=== PATIENT | male | born 1960 | race African-American/Black ===

== ENCOUNTER → 2018-02-11 | Outpatient (CLI) | payer OTHER ==
[~2018-02-11] MED LIST: AMITRIPTYLINE H10 M3 PO; AMITRIPTYLINE H25 M2 PO; AMLODIPINE BESY10 MG PO; AUGMENTIN 875-1 EACH PO; BETAMETHASONE D60 M2 TOP; CYCLOBENZAPRINE10 MG; DESYREL50 MG PO; FLEXERIL PO; FLOMAX0.4 MG PO; FLONASE 0.05%50 MCG NASAL; GLUCOPHAGE500 MG PO; HYDROCHLOROTHIA25 M1 PO; IBUPROFEN 600600 M1 PO; INDERAL LA60 M1; KEFLEX500 MG PO; LIPITOR 20 MG T20 M1 PO; LISINOPRIL20 MG PO; LISINOPRIL5 MG PO; LOSARTAN POTAS100 MG PO; MOBIC15 MG PO; NEURONTIN 400400 M1 PO; NEURONTIN300 MG PO; NORCO 5-325 TA1 EACH PO; NORVASC10 MG; OMEPRAZOLE 20 M20 MG; OMEPRAZOLE40 MG PO; ONDANSETRON HCL4 M2 PO; RANITIDINE HCL300 M1; TIZANIDINE HCL2 M1 PO; TRAMADOL 50 MG50 MG PO; ULTRAM 50MG TAB50 MG PO; ZOFRAN4 MG PO
--- NOTE | 2018-02-18 15:18 | PAINCON ---
[address] [address] PAIN MANAGEMENT CONSULTATION Name: NATAN OAKES Room: [facility] GilsonKerrie.#: [id number] Admission: 02/11/18 Attend Phys: Artem Oakes MD Discharge: Date of : 64 Report #: [id number] THIS REPORT FOR: //name// CC: Oscar Oakes DATE OF SERVICE: 02/11/2018 CHIEF COMPLAINT: Pain radiating down my left leg with numbness and weakness. HISTORY OF PRESENT ILLNESS: The patient is a 57-year-old gentleman who has been referred to the pain clinic for evaluation of left low back and leg pain. The patient states that he has been experiencing the pain and discomfort down into his left leg. He is experiencing numbness and tingling. Notes that the pain makes ambulation somewhat more difficult. He recounts trying to remove a tire. States that while trying to remove the tire, the lug nuts were quite tight. He felt a popping sensation as he loosened one of the lug nuts. He noted 2-3 days later that his pain continued to escalate. Notes that the pain is worse with activities of daily living. He is not sure of anything that makes it significantly better. This describes it as continuous, steady, constant, shooting, cramping, aching, throbbing, pounding, sharp, and stabbing pain. Rates it as a 9/10. Denies any pain similar to this in the past. He also notes some pain in his right knee. This has been problematic for about the last 6 months. He has used meloxicam and cyclobenzaprine to help with the pain. Feels that those medications have given him about 25% of improvement. Things which exacerbate the pain or activities, cold temperatures, prolonged walking, sitting, standing, walking upstairs, going from a sitting to a standing position, bending, and lifting. ALLERGIES: No known drug allergies. MEDICATIONS: Amlodipine 10 mg, Lipitor 20 mg, betamethasone 0.05% topical, Flexeril 10 mg spasms at bedtime, hydrochlorothiazide 25 mg, lisinopril 20 mg total of 40 mg daily, losartan 100 mg, Mobic 15 mg, metformin 500 mg b.i.d., omeprazole 20 mg 1-2 tablets daily, propranolol 60 mg, and Desyrel 50 mg. PAST MEDICAL HISTORY: Diabetes, hypertension, hepatitis C, gallbladder disease, stomach problems, joint disease/arthritis in the back, GERD, BPH, lumbar radiculopathy, chronic low back pain, hypercholesterolemia, and chronic insomnia. SOCIAL HISTORY: Works as a customer account specialist. He is working at this juncture. REVIEW OF SYSTEMS: Questionnaire to a point recent weight change, fatigue, [address] [place] [address] PAIN MANAGEMENT CONSULTATION Name: NATAN OAKES Room: [facility]#: [id number] Admission: 02/11/18 Attend Phys: Artem Oakes MD Discharge: Date of : 64 Report #: [id number] weakness, headaches, wears glasses, history of heart arrhythmia, shortness of breath, swelling of feet, nausea, abdominal pain, excessive thirst, hot and cold intolerance, joint pain, joint stiffness, weakness in the muscle, muscle pain and cramps, back pain, difficulty walking, rash, change in nails, recurring headaches, lightheadedness, numbness, and tingling sensation. LABORATORY DATA: MRI of the lumbar spine dated 04/23/2015. Impression: Degenerative changes and facet arthropathy with disk bulge in L4 through S1. 1. L3-L4 disk space narrowing and at least partial fusion of the posterior elements, spinous processes with mild narrowing of the spinal canal. No focal disk protrusion identified. Mild proximal left neural foraminal narrowing. 2. L4-L5 broad-based disk bulge and facet joint hypertrophy, left greater than right, resulting in moderately severe left foraminal narrowing. There is also right lateral recess stenosis. A small 6 mm focal small tissue signal structure abuts the anterior margin of the right facet joint, possibly buckling of the ligamentum flavum, focal synovial thickening, or small disk fragment. The right neural foramen is patent. Mild central canal narrowing. 3. L5-S1, mild disk bulge and small right paracentral protrusion with facet arthrosis. PAIN CLINIC ASSESSMENT: 1. History of osteoarthritis. The patient has some arthritic changes in his low back area. 2. Height 5 feet 7 inches, weight 269 pounds, BMI is 42. 3. Vital signs: Blood pressure is 137/89, heart rate 85, respiratory rate 16, room air saturation is 92%, temperature 99.0. 4. Pain intensity 8/10. 5. Fall risk. The patient has not fallen in the last 3 months. 6. Blood thinner. The patient is not on a blood thinning agent. 7. History of hypertension. The patient is being treated for hypertension. 8. Opioid therapy. The patient is not on an opioid regimen. 9. Risk assessment tool. 10. Functional assessment told. 11. Recreational drug use. The patient denies use of recreational drugs. 12. Tobacco: The patient denies use of tobacco. 13. Alcohol: The patient denies use of alcoholic beverages. PHYSICAL EXAMINATION: GENERAL: The patient is a well-developed black male, slightly obese. He is alert and oriented x 3. Speech is fluent. HEENT: Normocephalic, atraumatic. Extraocular eye muscles intact. Sclerae nonicteric. Hearing within normal limits. Mucous membranes are moist. NECK: Without adenopathy, JVD or bruits. Good range of motion. HEART: Regular rate. S1, S2. ABDOMEN: Protuberant [place] [address] PAIN MANAGEMENT CONSULTATION Name: NATAN OAKES Room: [facility]#: [id number] Admission: 02/11/18 Attend Phys: Artem Oakes MD Discharge: Date of : 64 Report #: [id number] EXTREMITIES: Upper extremity, muscle strength is judged to be 5/5 for the major muscle groups in the upper extremity. Deep tendon reflexes are trace at the biceps bilaterally. Brachial brachioradialis and triceps not noted. Lower extremity, muscle strength is judged to be 5/5 for the major muscle groups. The patient has pain and discomfort in the left low back area with pain that radiates into the L4-L5 distribution on his left leg. Notes some numbness, tingling, weakness in this area. Has some pain and discomfort in his right knee. Straight leg raise is positive on the left. Graham sign is negative. IMPRESSION: 1. Lumbar radiculopathy in the L4-L5 distribution on the left. 2. Diabetes mellitus. 3. Gastroesophageal reflux disease. 4. History of atrial fibrillation. 5. Benign prostatic hypertrophy. 6. Degenerative disk disease of the lumbar spine. 7. Lumbar radiculopathy. 8. Low back pain, chronic. 9. Hypercholesterolemia. 10. Hepatitis C. 11. Chronic insomnia. 12. Hypertension. RECOMMENDATIONS: We discussed treatment options with the patient. He has clinical findings consistent with lumbar radiculopathy involving his L5-S1 nerve root distribution with a positive straight leg raise. Sensory changes in the L4-L5 dermatomal distribution. We have discussed the possible, options. At this juncture, I think the patient should undergo a series of epidural steroid injections to help decrease the nerve root irritation. He will try tramadol for pain control. A script for 50 mg 1 tablet q.4-6 hours has been provided as well as Elavil to take at bedtime to help with some of the neurologic irritation that can result from nerve root irritation. He will follow up in the pain clinic at which time after being precertified by his insurance company, we will proceed with an epidural steroid injection in the L4-L5 dermatomal distribution to help with his pain. We would like to thank you for letting us participate in his care. We hope he continues to improve. <ELECTRONICALLY SIGNED> By: Artem Oakes MD 02/18/18 1518 1605 1948N. Mati Okaes MD /[facility]
== END ==
LOC: M.PC 03:58
DX: G89.29 Other chronic pain (principal); M54.5 Low back pain; M47.896 Other spondylosis, lumbar region; M54.16 Radiculopathy, lumbar region; E11.9 Type 2 diabetes mellitus without complications; I10 Essential (primary) hypertension; K21.9 Gastro-esophageal reflux disease without esophagitis; R53.1 Weakness; E78.00 Pure hypercholesterolemia, unspecified; I48.91 Unspecified atrial fibrillation; B19.20 Unspecified viral hepatitis C without hepatic coma; F51.04 Psychophysiologic insomnia

== ENCOUNTER → 2018-02-25 | Outpatient (CLI) | payer OTHER ==
--- NOTE | 2018-03-24 14:16 | PAINCON ---
[address] [address] PAIN MANAGEMENT CONSULTATION Name: NATAN OAKES Room: [facility] ZARA FrancoisNick#: [id number] Admission: 02/25/18 Attend Phys: Artem Oakes MD Discharge: Date of : 64 Report #: [id number] THIS REPORT FOR: //name// CC: Oscar Oakes DATE OF SERVICE: 02/25/2018 FOLLOWUP COMPLAINT: Here to undergo the epidural steroid injection. FOLLOWUP HISTORY: The patient is a 57-year-old gentleman who has been seen in the pain clinic because of pain and discomfort. He has been experiencing pain, which radiates down into his low back and down into his leg. He notes that the pain has been more problematic on the left. He has experienced some numbness and tingling in this area. He recounts trying to remove a tire. He recalls that the lug nuts were pretty tight. He felt a popping sensation when he loosened the lug nuts. Two to three days later, he continued to note pain and discomfort in his back, which has continued to escalate over time. He rates his pain as a 8-9/10. He also has some pain in his right knee. He was given Elavil at the last visit. He feels that the Elavil medication has been helpful. A trial of tramadol has not been very helpful in decreasing the pain. He would like to continue with the Elavil at bedtime, but does not feel that tramadol provided any significant improvement. ALLERGIES: No known drug allergies. MEDICATIONS: Amlodipine 10 mg, Lipitor 20 mg, betamethasone 0.05 topical, Flexeril 10 mg at bedtime for muscle spasms, hydrochlorothiazide 25 mg, lisinopril 20 mg total of 40 mg daily, losartan 100 mg, Mobic 15 mg, metformin 500 mg b.i.d., omeprazole 20 mg 1-2 tablets daily, propranolol 60 mg, and Desyrel 50 mg. PAIN CLINIC ASSESSMENT: 1. The patient is not being treated for osteoarthritis or rheumatoid arthritis. 2. Height 5 feet 7 inches, weight 209 pounds, BMI is 42. 3. Vital signs: Blood pressure 149/91, heart rate 82, respiratory rate 16, room air saturation 94%, temperature 98.5. 4. Pain intensity 8/10. 5. Fall risk: The patient has not fallen in the last 3 months. 6. The patient on a blood thinner: The patient is not on a blood thinning medication. 7. History of hypertension: The patient is not being treated for hypertension. 8. Opioid therapy greater than 6 weeks: The patient is not on an opioid regimen. 9. Risk assessment tool. 10. [place] [address] PAIN MANAGEMENT CONSULTATION Name: NATAN OAKES Room: [facility]#: [id number] Admission: 02/25/18 Attend Phys: Artem Oakes MD Discharge: Date of : 64 Report #: [id number] 11. Recreational drug use. The patient denies use of recreational drugs. 12. Tobacco: The patient denies use of tobacco. 13. Alcohol: The patient denies use of alcoholic beverages. PHYSICAL EXAMINATION: GENERAL: The patient is a well-developed, well-nourished black male, slightly obese. He is alert and oriented x 3. His speech is fluent. HEENT: Normocephalic, atraumatic. Extraocular eye muscles intact. Sclerae nonicteric. Hearing is within normal limits. Mucous membranes are moist. NECK: Without adenopathy, JVD or bruits. Good range of motion. HEART: Regular rate. S1, S2. ABDOMEN: Protuberant without organomegaly. EXTREMITIES: Upper extremity muscle strength is judged to be 5/5 for the major muscle groups in the upper extremities. Deep tendon reflexes trace in the biceps bilaterally. Muscle strength in the lower extremities is judged to be 5/5. The patient has some discomfort in the lower portion of his back with pain radiating down into his leg with some discomfort in the area of the L4-L5 distribution, left as well as the right leg. He notes some numbness and tingling in the affected area. The patient has noted some improvement in his right knee pain. Straight leg raise is positive on the left for radicular discomfort. IMPRESSION: 1. Lumbar radiculopathy, L4-L5 distribution on the left. 2. Diabetes mellitus. 3. Gastroesophageal reflux disease. 4. History of atrial fibrillation. 5. Benign prostatic hypertrophy. 6. Degenerative disk disease of the lumbar spine. 7. Low back pain, chronic. 8. Hypercholesterolemia. 9. Hepatitis C. 10. Chronic insomnia. 11. Hypertension. RECOMMENDATIONS: We discussed treatment options with the patient. We reviewed his findings again. He continues to have pain and discomfort in the lower portion of his back with pain that radiates down to the L4-L5, into the L4 distribution. He walks with a slight antalgic gait because of pain. He has returned to the pain clinic for an injection. His insurance company has granted him that ability. We will proceed with a lumbar epidural steroid injection. Risks and benefits of the procedure were again reviewed. They include but are not limited to infection, increased muscle soreness, headache, bleeding, worsening of pain, paralysis and the patient elects to proceed. PROCEDURE NOTE: The patient was taken into the procedure area. He was assisted [facility] [address] [place] [address] PAIN MANAGEMENT CONSULTATION Name: NATAN OAKES Room: [facility]#: [id number] Admission: 02/25/18 Attend Phys: Artem Oakes MD Discharge: Date of : 64 Report #: [id number] in getting on the procedure table. His back was sterilely prepped with a Betadine solution. Fluoroscopy using anterior, posterior as well as lateral viewing was instituted. His back was sterilely prepped with 0.25% bupivacaine. A 17-gauge Tuohy with loss of resistance was advanced into this area after the skin wheal was placed using 0.25% bupivacaine. Total of 80 mg Depo-Medrol, 40 mg triamcinolone and 2 mL of 0.25% bupivacaine was injected. The patient tolerated the procedure well. There were no complications. He will follow up in the near future. The patient has been given a script for amitriptyline 10 mg at bedtime to continue with. He feels that this medication is helpful and feels that it is helping his knee pain and discomfort. He will watch/monitor his blood sugars. We explained the possible problems with use of steroid medications in a patient with diabetes and he states he understands. We would like to thank you for letting us participate in his care. We hope he continues to improve. <ELECTRONICALLY SIGNED> By: Artem Oakes MD 03/24/18 1416 1416 [id number]. Mati Oakes MD /[facility]
== END | disposition home or self-care (01) ==
LOC: M.PC 03:54
DX: M51.16 Intervertebral disc disorders with radiculopathy, lumbar region (principal); G89.29 Other chronic pain; E11.9 Type 2 diabetes mellitus without complications; K21.9 Gastro-esophageal reflux disease without esophagitis; I48.91 Unspecified atrial fibrillation; N40.0 Benign prostatic hyperplasia without lower urinary tract symptoms; E78.00 Pure hypercholesterolemia, unspecified; B17.11 Acute hepatitis C with hepatic coma; Z79.899 Other long term (current) drug therapy

== ENCOUNTER → 2018-04-01 | Outpatient (CLI) | payer OTHER ==
--- NOTE | 2018-04-09 08:37 | PAINCON ---
[address] [address] PAIN MANAGEMENT CONSULTATION Name: NATAN OAKES Room: [facility] LUBNA Parrish.#: [id number] Admission: 04/01/18 Attend Phys: Artem Oakes MD Discharge: Date of : 64 Report #: [id number] THIS REPORT FOR: //name// CC: Oscar Oakes DATE OF SERVICE: 04/01/2018 FOLLOWUP COMPLAINT: Pain was improved for at least 5 days. It had resolved 100%. It is gradually started to return. At this juncture, it is a 9/10. Notes that his right knee appears to be doing better. His back is still problematic at 9-10. He is able to rest at night. He feels that the cyclobenzaprine is helpful, but caused him to be somewhat sleepy. He continues to work. He has had no problem with the gabapentin. He feels that the amitriptyline is helpful at night. He is not having any increased hangover in the morning. He is not sure how much benefit he received from tramadol. He feels that Meloxicam, which he has been taking for some time is helpful as well. Overall, feels things are 25% better. Has pain, which he rates as an 8-9. The patient and his went to [place] for vacation. He did an extended amount of walking and other activities on his feet. He feels that that may have been a reason why his pain has recurred. He still is having some numbness in his left leg. Finds that activities such as walking, sitting, standing, walking stairs and going from sitting to standing can be problematic. He had no complications with his medications. We will consider the possibility of an epidural steroid injections in the near future. We will increase and continue with gabapentin. ALLERGIES: No known drug allergies. CURRENT MEDICATIONS: Amlodipine 10 mg, Lipitor 20 mg, betamethasone 0.05 topical, Flexeril 10 mg at bedtime for muscle spasms, hydrochlorothiazide 25 mg, lisinopril 20 mg total of 40 mg daily, losartan 100 mg, Mobic 15 mg, metformin 500 mg b.i.d., omeprazole 20 mg 1-2 tablets daily, propranolol 60 mg, Desyrel 50 mg. PAIN CLINIC ASSESSMENT: 1. The patient is not being treated for osteoarthritis or rheumatoid arthritis. 2. Height 5 feet 7 inches, weight 263 pounds, BMI is 43. 3. Vital Signs: Blood pressure 147/107, heart rate 87, respiratory rate 16, room air saturation 95%, temperature 98.2. 4. Pain intensity 05/03. 5. Fall risk. The patient has not fallen in the last 3 months. 6. Blood thinner. The patient is not on a blood thinning medication. 7. History of hypertension. The patient is being treated for hypertension. 8. Opioid therapy. The patient is not on opioid medication and has tried tramadol, did not feel like that had much efficacy. 9. [place] [address] PAIN MANAGEMENT CONSULTATION Name: NATAN OAKES Room: [facility]#: [id number] Admission: 04/01/18 Attend Phys: Artem Oakes MD Discharge: Date of : 64 Report #: [id number] 10. Functional assessment tool. 11. Recreational drug use. The patient denies use of recreational drugs. 12. Tobacco: The patient denies use of tobacco. 13. Alcohol: The patient denies use of alcoholic beverages. PHYSICAL EXAMINATION: GENERAL: The patient is a well-developed, well-nourished black male, slightly obese. He is alert and oriented x 3. His speech is fluent. HEENT: Normocephalic, atraumatic. Extraocular eye muscles are intact. Sclerae nonicteric. Hearing is within normal limits. Mucous membranes are moist. NECK: Without adenopathy, JVD or bruits. Good range of motion. HEART: Regular rate. S1, S2. ABDOMEN: Protuberant without organomegaly, nontender. EXTREMITIES: Upper extremities strength is judged to be 5/5 for the major muscle groups in the upper extremity. Deep tendon reflexes are trace at the biceps bilaterally. Muscle strength in the lower extremities is judged to be 5/5. The patient has some discomfort in the lower portion of his back with pain radiating down into his leg, in the L4-L5 distribution. This involves his right leg. He has noted to return of some of the numbness and tingling in this area. The patient also has some right knee pain. Straight leg raise becoming positive for radicular discomfort. IMPRESSION: 1. Lumbar radiculopathy at L4-L5 distribution on the left. 2. Diabetes mellitus. 3. Gastroesophageal reflux. 4. History of atrial fibrillation. 5. Benign prostatic hypertrophy. 6. Degenerative disk disease of the lower lumbar spine. 7. Low back pain. 8. Chronic pain. 9. Hypercholesterolemia. 10. Hepatitis C. 11. Chronic insomnia. 12. Hypertension. RECOMMENDATIONS: We discussed treatment options with the patient. Risks and benefits of medications were discussed. The patient did not feel like the tramadol was very beneficial. We would not write that one. We discussed the use of gabapentin. He feels that there is some benefit from this medication. We will increase it. We have explained that about 1800 mg, sometimes is a good point to reach to make sure that the efficacy of this medication has been reached or approached. Tramadol has not been rewritten. Meloxicam, patient gets it from his primary. He will continue with that medication. Amitriptyline, the patient will be given 10 mg tablets and able to increase this up to 3 tablets per night. Hopefully, he will [place] [address] PAIN MANAGEMENT CONSULTATION Name: NATAN OAKES Room: [facility]#: [id number] Admission: 04/01/18 Attend Phys: Artem Oakes MD Discharge: Date of : 64 Report #: [id number] benefit from that. A script for this medication has been written. We would like to thank you for letting us participate in his care. We will consider possibility of another epidural steroid injection in the future. <ELECTRONICALLY SIGNED> By: Artem Oakes MD 04/09/18 0837 1231 205N. Mati Oakes MD /nt
== END ==
LOC: M.PC 03:27
DX: M51.16 Intervertebral disc disorders with radiculopathy, lumbar region (principal); I10 Essential (primary) hypertension; E78.00 Pure hypercholesterolemia, unspecified; E11.9 Type 2 diabetes mellitus without complications; K21.9 Gastro-esophageal reflux disease without esophagitis; N40.1 Benign prostatic hyperplasia with lower urinary tract symptoms; B18.2 Chronic viral hepatitis C; G89.29 Other chronic pain; G47.00 Insomnia, unspecified

== ENCOUNTER → 2018-04-15 | Outpatient (CLI) | payer OTHER ==
--- NOTE | 2018-04-21 16:41 | PAINCON ---
[address] [address] PAIN MANAGEMENT CONSULTATION Name: NATAN OAKES Room: [facility] LUBNA Parrish.#: [id number] Admission: 04/15/18 Attend Phys: Artem Oakes MD Discharge: Date of : 64 Report #: [id number] THIS REPORT FOR: //name// CC: Oscar Oakes DATE OF SERVICE: 04/15/2018 FOLLOWUP COMPLAINT: Pain improved after the last injection. My blood sugars did go up in the 300s. I saw my regular doctor and he gave me some medicine to take prior to this injection and to take for the next few days. FOLLOWUP HISTORY: The patient is a 57-year-old gentleman, who has been seen in the pain clinic because of lumbar radiculopathy. He has undergone an epidural steroid injection and epidural injection. He noted that the pain improved. He still has some pain and discomfort, which is radiating down into the low back into his leg. He has returned today for a second injection. The pain is primarily on the right side. It involves his knee as well. He noticed some severe low back pain at times, sometimes it makes difficult for him to concentrate. He works at home. He has tried the tramadol. He notes that it knocks the edge of the pain, but still pain continues to be problematic. He has had no complications from use of the amitriptyline. He is sleeping better as a result of that. No problems with gabapentin. He feels that the tizanidine is helpful. He has returned today with consideration of another epidural steroid injection. He has had no complications from the past procedure. He still has some discomfort with activities such as walking, sitting, standing, going from sitting to standing, lifting, and bending. He feels that heat, rest, and medications are helpful. CURRENT MEDICATIONS: Amlodipine 10 mg, Lipitor 20 mg, betamethasone 0.05 mg topical, Flexeril 10 mg at bedtime for muscle spasms, hydrochlorothiazide 25 mg, lisinopril 20 mg, total of 40 daily, losartan 100 mg, Mobic 15 mg, metformin 500 mg b.i.d., omeprazole 20 mg 1-2 tablets daily, propranolol 60 mg, and Desyrel 50 mg. ALLERGIES: No known drug allergies. PAIN CLINIC ASSESSMENT: 1. The patient is not being treated for osteoarthritis or rheumatoid arthritis. 2. He does have some symptoms in his knee that might be osteoarthritic. 3. Pain score is 8/10. 4. Fall history: The patient has not fallen in the last 3 months. 5. Blood thinner. The patient is not on a blood thinning medication. 6. Hypertension. The patient is being treated for hypertension. 7. Opioid therapy. The patient is not on an opioid medication on a [place] [address] PAIN MANAGEMENT CONSULTATION Name: NATAN OAKES Room: [facility]#: [id number] Admission: 04/15/18 Attend Phys: Artem Oakes MD Discharge: Date of : 64 Report #: [id number] 8. Risk assessment tool. 9. Functional assessment tool. 10. Recreational drug use. The patient denies use of recreational drugs. 10. Tobacco: The patient denies use of tobacco. 11. Alcohol: The patient denies use of alcoholic beverages. PHYSICAL EXAMINATION: GENERAL: The patient is a well-developed, well-nourished black male. He appears his stated age. He is slightly obese. Speech is fluent. Height is 5 feet 7 inches, weight is 267 pounds, and BMI is 41. VITAL SIGNS: Blood pressure is 130/88, heart rate is 108, respiratory rate is 18, room air saturation is 96%, and temperature is 98.7. HEENT: Normocephalic, atraumatic. Extraocular eye muscles intact. Sclerae nonicteric. Hearing is within normal limits. Mucous membranes are moist. NECK: Without adenopathy, JVD, or bruits. Good range of motion. HEART: Regular rate. S1, S2. ABDOMEN: Protuberant without organomegaly. EXTREMITIES: Upper extremity strength is judged to be 5/5 for the major muscle groups with symmetry. MUSCULOSKELETAL: Without significant scoliosis, kyphosis, or lordosis. The patient has pain and discomfort in the lower portion of his back with pain that radiates down into the L4-L5 distribution of his right leg. He note some numbness and tingling in this area. He has pain in the area of his right knee. Straight leg raise is positive. IMPRESSION: 1. Lumbar radicular pain in L4-L5 distribution, elevated blood sugars after last injection. 2. Diabetes. 3. Gastroesophageal reflux. 4. History of atrial fibrillation. 5. Benign prostatic hypertrophy. 6. Degenerative disk disease of the lower lumbar spine. 7. Low back pain. 8. Chronic pain. 9. Hypercholesterolemia. 10. Hepatitis C. 11. Chronic insomnia. 12. Hypertension. RECOMMENDATIONS: We have discussed treatment options with the patient. Risks and benefits of an epidural steroid injection were again reviewed. Possible complications were discussed. The patient did note elevation in his blood sugars is about 300 levels. He states that he has been seen by his primary physician, who has given him medications to take IM to help with the blood sugar control. He is to take this medication over the next 5 [place] [address] PAIN MANAGEMENT CONSULTATION Name: NATAN OAKES Room: [facility]#: [id number] Admission: 04/15/18 Attend Phys: Artem Oakes MD Discharge: Date of : 64 Report #: [id number] Should his blood sugars become elevated, he will call his primary. If his blood sugars become too low, he will cease using the insulin like medication as prescribed by his physician and contact his physician. PROCEDURE NOTE: The patient was taken to the procedure area. His back was sterilely prepped with a Betadine solution. A pillow was placed under his abdomen to bolster and improve positioning. Fluoroscopy used in the anterior, posterior as well as lateral viewing were implemented. He has a 17-gauge Tuohy with loss of resistance technique, it was used to gain access to the epidural space using a left paramedian approach. A total of 80 mg Depo-Medrol, 40 mg of triamcinolone, and 2 mL of 0.25% bupivacaine was injected. The patient tolerated the procedure well. There were no complications. Total of 10 seconds fluoroscopy time was used. The patient will follow up in the near future. We would like to thank you for letting us to participate in his care. We hope he continues to improve. <ELECTRONICALLY SIGNED> By: rAtem Oakes MD 04/21/18 1641 1314 0049N. MD RILEY Hernandez
== END | disposition home or self-care (01) ==
LOC: M.PC 03:21
DX: M51.16 Intervertebral disc disorders with radiculopathy, lumbar region (principal); E11.9 Type 2 diabetes mellitus without complications; K21.9 Gastro-esophageal reflux disease without esophagitis; I48.91 Unspecified atrial fibrillation; N40.0 Benign prostatic hyperplasia without lower urinary tract symptoms; G89.29 Other chronic pain; M54.5 Low back pain; E78.00 Pure hypercholesterolemia, unspecified; G47.09 Other insomnia; I10 Essential (primary) hypertension; B19.20 Unspecified viral hepatitis C without hepatic coma; Z68.41 Body mass index [BMI] 40.0-44.9, adult; Z79.899 Other long term (current) drug therapy

== ENCOUNTER → 2018-05-13 | Outpatient (CLI) | payer OTHER ==
--- NOTE | 2018-06-07 10:00 | PAINCON ---
[address] [address] PAIN MANAGEMENT CONSULTATION Name: NATAN OAKES Room: [facility] GilsonBebo#: [id number] Admission: 05/13/18 Attend Phys: Artem Oakes MD Discharge: Date of : 64 Report #: [id number] THIS REPORT FOR: //name// CC: Oscar Oakes DATE OF SERVICE: 05/13/2018 FOLLOWUP HISTORY: "The pain has improved after the last injection but I am still having some discomfort." FOLLOWUP COMPLAINT: The patient is a 57-year-old gentleman who has been seen in the Pain Clinic because of lumbar radiculopathy. He has undergone epidural steroid injections on 2 other occasions. He has gleaned about 70% improvement. At this juncture, he feels that things are going reasonably well. He is having some discomfort and would like to proceed with another injection. He feels that the tramadol, gabapentin and Elavil medications are helpful. He is not having any complications. He does still have some difficulty with activities, such as walking, sitting, standing, climbing stairs, lifting and bending. He feels that his medications as well as rest are helpful. He has returned today and feels that another injection would be beneficial. He agrees to proceed. ALLERGIES: No known drug allergies. CURRENT MEDICATIONS: Amlodipine 10 mg, Lipitor 20 mg, betamethasone 0.05% topical, Flexeril 10 mg at bedtime for muscle spasms, hydrochlorothiazide 25 mg, lisinopril 20 mg - a total of 40 mg lisinopril, losartan 100 mg, Mobic 15 mg, metformin 500 mg b.i.d., omeprazole 20 mg one to two tablets daily, propranolol 60 mg, Desyrel 50 mg. PAIN CLINIC ASSESSMENT/PQRS: 1. The patient is not being treated for osteoarthritis or rheumatoid arthritis. The patient does have some arthritic changes in his knee. 2. Height 5 feet 7 inches, weight 265 pounds, BMI is 41.6. 3. Vital signs: Blood pressure 131/101, heart rate is 100, saturation 94%, respiratory rate is 16, room air saturation 99%. 4. Pain score: 6/10. 5. Fall history: The patient has not fallen in the last 3 months. 6. Blood thinner: The patient is not on a blood thinning medication. 7. History of hypertension: The patient is being treated for hypertension. 8. Opioid therapy greater than 6 weeks: The patient is on a contract and receives his medications through the Pain Clinic. 9. Risk assessment tool: Low risk for opioid use. 10. Functional assessment tool. 11. Recreational drug use: The patient denies use of recreational drugs. 12. Tobacco: The [place] [address] PAIN MANAGEMENT CONSULTATION Name: NATAN OAKES Room: [facility]#: [id number] Admission: 05/13/18 Attend Phys: Artem Oakes MD Discharge: Date of : 64 Report #: [id number] 13. Alcohol: The patient denies use of alcoholic beverages. PHYSICAL EXAMINATION: GENERAL: The patient is a well-developed, well-nourished black male. He appears his stated age. He is slightly obese. He has speech, which is fluent. HEENT: Normocephalic, atraumatic. Extraocular eye muscles intact. Sclerae are nonicteric. Mucous membranes are moist. NECK: Without adenopathy or JVD. Good range of motion. HEART: Regular rate. S1, S2. ABDOMEN: Protuberant, without organomegaly. EXTREMITIES: Upper extremity muscle strength is judged to be 5/5 for the major muscle groups with symmetry. MUSCULOSKELETAL: Without significant scoliosis, kyphosis, or lordosis. The patient has pain and discomfort in the lower back with pain that is radiating down at the L4-L5 dermatomal distribution involving his right leg. The patient has some numbness and tingling in this area. He has perception of some weakness. Straight leg raise is positive. IMPRESSION: 1. Lumbar radicular pain in the L4-L5 distribution, elevated blood sugars after last injection. 2. Diabetes. 3. Gastroesophageal reflux. 4. History of atrial fibrillation. 5. Benign prostatic hypertrophy. 6. Degenerative disc disease of the lower lumbar spine. 7. Low back pain. 8. Chronic pain. 9. Hypercholesterolemia. 10. Hepatitis C. 11. Chronic insomnia. 12. Hypertension. RECOMMENDATIONS: We discussed treatment options with the patient. Risks and benefits of an epidural steroid injection were again reviewed. Possible complications of the procedure, which could include but are not limited to infection, increased muscle soreness, headache, bleeding, worsening of pain, no improvement in pain were discussed, and the patient elects to proceed. PROCEDURE NOTE: The patient was taken to the procedure area. He was assisted in getting on the examination table. His back was sterilely prepped with a Betadine solution. A 0.25% bupivacaine was infiltrated. A 17-gauge Tuohy with loss of resistance technique was used to gain access to the epidural space. There was no CSF, heme, or paresthesia. A right paracentral approach was undertaken. We were unable to negotiate that area. A midline approach was then used. A 0.25% bupivacaine was infiltrated. A 17-gauge [place] [address] PAIN MANAGEMENT CONSULTATION Name: NATAN OAKES Room: [facility]#: [id number] Admission: 05/13/18 Attend Phys: Artem Oakes MD Discharge: Date of : 64 Report #: [id number] resistance technique was then placed in the L4-L5 epidural area. A total of 80 mg Depo-Medrol, 40 mg triamcinolone and 2 mL of 0.25% bupivacaine was injected. The patient tolerated the procedure well. There were no complications. A total of 20 seconds fluoroscopy time was used. A script for tramadol 50 mg, amitriptyline 25 mg, Neurontin 300 mg t.i.d. was written. The patient will return to the Pain Clinic as needed. We would like to thank you for letting us participate in his care. We hope he continues to improve. <ELECTRONICALLY SIGNED> By: Artem Oakes MD 06/07/18 1000 [id number] 1651N. Mati Oakes MD /nt
== END | disposition home or self-care (01) ==
LOC: M.PC 01:46
DX: M51.16 Intervertebral disc disorders with radiculopathy, lumbar region (principal); G89.29 Other chronic pain; I10 Essential (primary) hypertension; E11.9 Type 2 diabetes mellitus without complications; K21.9 Gastro-esophageal reflux disease without esophagitis; N40.0 Benign prostatic hyperplasia without lower urinary tract symptoms; I48.91 Unspecified atrial fibrillation; F51.04 Psychophysiologic insomnia; B19.20 Unspecified viral hepatitis C without hepatic coma; Z79.899 Other long term (current) drug therapy; Z79.01 Long term (current) use of anticoagulants; Z98.890 Other specified postprocedural states

== ENCOUNTER → 2018-06-15 | Outpatient (CLI) | payer OTHER ==
--- NOTE | 2018-07-07 16:20 | PAINCON ---
[address] [address] PAIN MANAGEMENT CONSULTATION Name: NATAN OAKES Room: [facility].#: [id number] Admission: 06/15/18 Attend Phys: Artem Oakes MD Discharge: Date of : 64 Report #: [id number] THIS REPORT FOR: //name// CC: Oscar Oakes DATE OF SERVICE: 06/15/2018 CHIEF COMPLAINT: Pain in the back and down the leg has improved with the medications, injection." FOLLOWUP HISTORY: The patient is a 57-year-old gentleman who has been followed in the pain clinic. He recall he suffers from lumbar radiculopathy. He has undergone epidural steroid injections. He feels that these medications have been helpful. He feels greater than 70% improvement. This in conjunction with his current medical regimen of amitriptyline and tramadol have been helpful. He is able to engage in activities of daily living, but still has some problems with his back with certain activities, reduction and temperature outside, walking, sitting, standing, climbing stairs, going from a sitting and standing position and bending. He feels that the medications are helpful. He had no problems with his GI tract. The patient is considering a gastric sleeve to decrease his weight. He rates his pain as an 8/10 at this juncture. ALLERGIES: No known drug allergies. MEDICATIONS: Amlodipine 10 mg, Lipitor 20 mg, betamethasone 0.05% topical, Flexeril 10 mg at bedtime, hydrochlorothiazide 25 mg, lisinopril 20 mg, total of 40 mg daily, losartan 100 mg, Mobic 15 mg, metformin 500 mg b.i.d., omeprazole 20 mg 1-2 tablets daily, propranolol 60 mg, Desyrel 50 mg at bedtime. PAIN CLINIC ASSESSMENT/PQRS: 1. The patient does have some arthritic changes in his knee. He has not been treated for rheumatoid arthritis. 2. Height 5 feet 7 inches, weight 272 pounds, BMI is 42.7. 3. Vital signs: Blood pressure 129/86, heart rate 93, respiratory rate 16, room air saturation 93%. 4. Pain score 04/02. 5. Fall history: The patient has not fallen in the last 3 months. 6. Blood and the patient is not on a blood thinning medication. 7. Hypertension. He has been treated for hypertension. 8. Opioid therapy greater than 6 weeks. The patient is not on contract. He is on a contract with the pain clinic at his medications from 1 source. 9. Risk assessment tool, low for use of opioids. 10. Functional assessment tool. 11. Recreational drug use. The patient denies use of recreational drugs. 12. Tobacco: The [place] [address] PAIN MANAGEMENT CONSULTATION Name: NATAN OAKES Room: [facility]#: [id number] Admission: 06/15/18 Attend Phys: Artem Oakes MD Discharge: Date of : 64 Report #: [id number] PHYSICAL EXAMINATION: GENERAL: The patient is a well-developed, well-nourished black male, appears his stated age. He is alert and oriented x 3. Affect is appropriate. Speech is fluent. HEENT: Normocephalic, atraumatic. Extraocular eye muscles intact. Sclerae nonicteric. Mucous membranes are moist. NECK: Without adenopathy or JVD. Good range of motion. HEART: Regular rate. S1, S2. ABDOMEN: Protuberant without organomegaly. Bowel sounds present. Upper extremity muscle strength judged to be 5/5 for the major muscle groups with symmetry. MUSCULOSKELETAL: Without significant scoliosis, kyphosis or lordosis. The patient has pain and discomfort in the lower portion of his back with pain is radiating down in the L4-L5 dermatomal distribution improved after last epidural steroid injection. Still has some perception of pain and discomfort in this area. Slight weakness. Slight positive straight leg raise. IMPRESSION: 1. Lumbar radiculopathy in the L4-L5 distribution. History of sugars elevated after an epidural steroid injection. 2. Diabetes. 3. Gastroesophageal reflux. 4. History of atrial fibrillation. 5. Benign prostatic hypertrophy. 6. Degenerative disk disease of the lower spine. 7. Low back pain. 8. Chronic pain. 9. Hypercholesterolemia. 10. Hepatitis C. 11. Chronic insomnia. 12. Hypertension. RECOMMENDATIONS: We discussed treatment options with the patient. At this juncture, we will continue with his current medical regimen of gabapentin, amitriptyline, tramadol and Mobic. A script for these medications have been written. The patient will take the medications as prescribed. We have changed his Mobic; gabapentin from 300-400. He will continue with his amitriptyline. The patient is contemplating undergoing gastric bypass using sleeve. He will call us if he has any problems with his medications. He may need to stop the Mobic medication prior to the surgery. His general surgeon will instruct him in [address] [address] PAIN MANAGEMENT CONSULTATION Name: RISANATAN Mcclain Room: [facility]NA[facility] Morales#: [id number] Admission: 06/15/18 Attend Phys: Artem Oakes MD Discharge: Date of : 64 Report #: [id number] that area. We would like to thank you for letting us participate in his care. We hope he continues to improve. <ELECTRONICALLY SIGNED> By: Artem Oakes MD 07/07/18 1620 1311 1603N. Mati Oakes MD /nt
== END ==
LOC: M.PC 06-10 11:30
DX: M54.16 Radiculopathy, lumbar region (principal); E11.9 Type 2 diabetes mellitus without complications; K21.9 Gastro-esophageal reflux disease without esophagitis; N40.0 Benign prostatic hyperplasia without lower urinary tract symptoms; E78.00 Pure hypercholesterolemia, unspecified; I10 Essential (primary) hypertension; G89.29 Other chronic pain; F51.04 Psychophysiologic insomnia; B19.20 Unspecified viral hepatitis C without hepatic coma; M51.36 Other intervertebral disc degeneration, lumbar region; Z86.79 Personal history of other diseases of the circulatory system

== ENCOUNTER → 2018-07-13 | Outpatient (CLI) | payer OTHER ==
--- NOTE | ~2018-07-13 | PAINCON ---
[address] [address] PAIN MANAGEMENT CONSULTATION Name: NATAN OAKES Room: [facility] Francois.#: [id number] Admission: 07/13/18 Attend Phys: Artem Oakes MD Discharge: Date of : 64 Report #: [id number] THIS REPORT FOR: //name// CC: Oscar Oakes DATE OF SERVICE: 07/13/2018 PRIMARY CARE PHYSICIAN: Oscar Pelaez MD IDENTIFICATION: Here for medication renewal. "I have quite a bit of pain because I sit for a long time at work, I am a marketing data specialist." FOLLOWUP HISTORY: The patient is a 58-year-old gentleman who has been followed in the pain clinic because he suffers from lumbar radiculopathy. He has undergone epidural steroid injections. Notes that his pain improved about 70% in the past when he had the injection. Continues to have some pain and discomfort, which can be problematic. 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 Notes that this can be more problematic. He notes that his medications are helpful. He has considered getting one of the desk where he can stand. He feels that this might be helpful and he will look into it. He would like to have his medications renewed. He does not have any problems with the medications. He is keeping the medications in a guarded area. Feels that the tramadol was helpful. He has had no problem with meloxicam with his stomach. He feels that the muscle relaxant, tizanidine is helpful. ALLERGIES: No known drug allergies. CURRENT MEDICATIONS: Amlodipine 10 mg, Lipitor 20 mg, betamethasone 0.05% topical, Flexeril 10 mg at bedtime, hydrochlorothiazide 25 mg, lisinopril 20 mg, a total of 40 mg daily, losartan 100 mg, Mobic 15 mg, metformin 500 mg b.i.d., omeprazole 20 mg 1-2 tablets daily, propranolol 60 mg, and Desyrel 50 mg at bedtime. PAIN CLINIC ASSESSMENT/PQRS: 1. The patient does have some arthritic changes in his knees. He is not being treated for rheumatoid arthritis. 2. Height 5 feet 7 inches, weight 272 pounds, BMI is 42.7. 3. Vital signs: Blood pressure 136/87, heart rate 96, respiratory rate 16, room air saturation 95%, temperature 98.4. 4. Pain intensity 9/10. 5. Fall risk. The patient has not fallen in the last 3 months. 6. Blood thinner. The patient is not on a blood thinning medication. 7. Hypertension. The patient is being treated for hypertension. 8. Opioids greater than 6 weeks. The [place] [address] PAIN MANAGEMENT CONSULTATION Name: NATAN OAKES Room: [facility]#: [id number] Admission: 07/13/18 Attend Phys: Artem Oakes MD Discharge: Date of : 64 Report #: [id number] 9. Risk assessment tool, low for opioid use. 10. Functional assessment tool. 11. Recreational drug use. The patient denies use of recreational drugs. 12. Tobacco: The patient denies use of tobacco. PHYSICAL EXAMINATION: GENERAL: The patient is a well-developed, well-nourished black male, appears his stated age. He is alert and oriented x 3. His affect is appropriate. Speech is fluent. HEENT: Normocephalic, atraumatic. Extraocular eye muscles intact. Sclerae nonicteric. Mucous membranes are moist. NECK: Without adenopathy or JVD. Good range of motion. HEART: Rate regular, S1, S2. ABDOMEN: Protuberant without organomegaly. Bowel sounds present. EXTREMITIES: Upper extremity muscle strength is judged to be 5/5 for the major muscle groups. MUSCULOSKELETAL: Without significant scoliosis, kyphosis or lordosis. The patient has pain and discomfort in the lower portion of his back radiating down to the L4-L5 dermatomal distribution. Slight positive of straight leg raise on the left and right. IMPRESSION: 1. Lumbar radiculopathy, L4-L5 dermatomal distribution. 2. History of elevated blood sugars after epidural steroid injection. 3. Diabetes. 4. Gastroesophageal reflux. 5. History of atrial fibrillation. 6. Benign prostatic hypertrophy. 7. Degenerative disk disease of the lower spine. 8. Low back pain. 9. Chronic pain. 10. Hypercholesterolemia. 11. Hepatitis C. 12. Chronic insomnia. 13. Hypertension. RECOMMENDATIONS: We discussed treatment options with the patient. I feel that it would be helpful for him to try one of the standing desktops. I think this will be helpful in decreasing some of the pain that he has. States that for a prolonged sitting he notes a worsening of his pain. He states that he would have to buy this out of his own money. He will consider this. We did talk about the possibility of seeing this at a store like [employer]. He would like to have his medications renewed. A script for his medications has been rewritten. We will continue tramadol 50 mg 1 p.o. q.i.d. 120 tablets in the spurs. Amitriptyline 2 tablets at bedtime for a total of 50 mg, Meloxicam 15 mg daily, tizanidine 2 [place] [address] PAIN MANAGEMENT CONSULTATION Name: NATAN OAKES Room: [facility].#: [id number] Admission: 07/13/18 Attend Phys: Artem Oakes MD Discharge: Date of : 64 Report #: [id number] We would like to thank you for letting us participate in his care. We hope he continues to improve. By: 1637 0400N. Mati Oakes MD /EMILIANO
== END ==
LOC: M.PC 04:53
DX: M54.16 Radiculopathy, lumbar region (principal); E11.9 Type 2 diabetes mellitus without complications; K21.9 Gastro-esophageal reflux disease without esophagitis; I48.91 Unspecified atrial fibrillation; E78.00 Pure hypercholesterolemia, unspecified; I10 Essential (primary) hypertension; G89.29 Other chronic pain; N40.0 Benign prostatic hyperplasia without lower urinary tract symptoms; B19.20 Unspecified viral hepatitis C without hepatic coma; M51.36 Other intervertebral disc degeneration, lumbar region; Z79.899 Other long term (current) drug therapy

== ENCOUNTER → 2018-08-10 | Outpatient (CLI) | payer OTHER ==
--- NOTE | ~2018-08-10 | PAINCON ---
[address] [address] PAIN MANAGEMENT CONSULTATION Name: NATAN OAKES Room: [facility]#: [id number] Admission: 08/10/18 Attend Phys: Artem Oakes MD Discharge: Date of : 64 Report #: [id number] THIS REPORT FOR: //name// CC: Oscar Oakes DATE OF SERVICE: 08/10/2018 PRIMARY CARE PHYSICIAN: Oscar Pelaez M.D. CHIEF COMPLAINT: Here for medication renewal. FOLLOWUP HISTORY: The patient is a 58-year-old black gentleman who has been followed in the pain clinic because of lumbar radiculopathy. He has undergone an epidural steroid injection. He found that, that has been beneficial. He feels that overall things are going reasonably well with his current medical regimen. He has had no complications from it. Continues to work from his home. Feels that the ergonomic changes to his work space had been beneficial. He would like to have his medications renewed today. ALLERGIES: No known drug allergies. CURRENT MEDICATIONS: Amlodipine 10 mg, Lipitor 20 mg, betamethasone 0.05% topical, Flexeril 10 mg at bedtime, hydrochlorothiazide 25 mg, lisinopril 20 mg, 40 mg total, losartan 100 mg, Mobic 15 mg, metformin 500 mg b.i.d., omeprazole 20 mg 1-2 tablets, propranolol 60 mg, Desyrel 50 mg at bedtime. PAIN CLINIC ASSESSMENT AND PQRS: 1. The patient does have some arthritic changes in his knees. He has not been treated for rheumatoid arthritis. 2. Height 5 feet 7 inches, weight 273 pounds, BMI is 42. 3. Vital Signs: Blood pressure is 140/85, heart rate 97, respiratory rate 16, room air saturation 96%, temperature 98.3. 4. Pain intensity /10. 5. Fall risk. The patient has not fallen in the last 3 months. 6. Blood thinner. The patient is not on a blood thinning medication. 7. Hypertension. The patient is being treated for hypertension. 8. Opioids greater than 6 weeks. The patient is receiving tramadol. 9. Risk assessment tool for opioid use low. 10. Functional assessment tool. 11. Recreational drug use. The patient denies use of recreational drugs. 12. Tobacco: The patient denies use of tobacco. PHYSICAL EXAMINATION: GENERAL: The patient is a well-developed, well-nourished, [place] [address] PAIN MANAGEMENT CONSULTATION Name: NATAN OAKES Room: [facility]#: [id number] Admission: 08/10/18 Attend Phys: Artem Oakes MD Discharge: Date of : 64 Report #: [id number] his stated age. He is alert and oriented x 3. His affect is appropriate. Speech is fluent. HEENT: Normocephalic, atraumatic. Extraocular eye muscles intact. Sclerae nonicteric. Mucous membranes are moist. NECK: Without adenopathy or JVD. Good range of motion. HEART: Regular rate. S1, S2. ABDOMEN: Protuberant without organomegaly. Bowel sounds present. EXTREMITIES: Upper extremity muscle strength is judged to be 5/5 for the major muscle groups. MUSCULOSKELETAL: Without significant scoliosis, kyphosis or lordosis. The patient has pain and discomfort in the lower portion of his back, which radiates down in the L4-L5 dermatomal distribution. Slightly positive straight leg raise on the left and right. IMPRESSION: 1. History of lumbar radiculopathy, L4-L5 dermatomal distribution. 2. History of elevated blood sugars after an epidural steroid injection. 3. Diabetes. 4. Gastroesophageal reflux. 5. History of atrial fibrillation. 6. Benign prostatic hypertrophy. 7. Degenerative disk disease of the lumbar spine. 8. Low back pain. 9. Chronic pain. 10. Hypercholesterolemia. 11. Hepatitis C. 12. Chronic insomnia. 13. Hypertension. RECOMMENDATIONS: We discussed treatment options with the patient. We will continue with his current medications. He feels overall that things are beneficial. We will renew his medications. A script for amitriptyline 25 mg 2 tablets at bedtime, gabapentin 400 mg 1 p.o. t.i.d., tramadol 50 mg q.i.d., Meloxicam 15 mg daily, tizanidine 2 mg b.i.d. have been written. We would like to thank you for letting us participate in his care. We hope he continues to improve. By: [id number]. Mati Oakes MD /EMILIANO
== END ==
LOC: M.PC 04:43
DX: M51.16 Intervertebral disc disorders with radiculopathy, lumbar region (principal); E11.9 Type 2 diabetes mellitus without complications; K21.9 Gastro-esophageal reflux disease without esophagitis; I48.91 Unspecified atrial fibrillation; E78.00 Pure hypercholesterolemia, unspecified; I10 Essential (primary) hypertension; N40.0 Benign prostatic hyperplasia without lower urinary tract symptoms; G89.29 Other chronic pain; G47.00 Insomnia, unspecified; B19.20 Unspecified viral hepatitis C without hepatic coma; Z79.899 Other long term (current) drug therapy

== ENCOUNTER → 2018-09-09 | Outpatient (CLI) | payer OTHER | END | disposition home or self-care (01) | LOC: M.PC 08-31 11:20 | DX: M54.16 Radiculopathy, lumbar region (principal); G89.29 Other chronic pain; I10 Essential (primary) hypertension; E11.9 Type 2 diabetes mellitus without complications; E78.00 Pure hypercholesterolemia, unspecified; B19.20 Unspecified viral hepatitis C without hepatic coma; Z79.899 Other long term (current) drug therapy; Z98.890 Other specified postprocedural states ==

== ENCOUNTER → 2018-10-07 | Outpatient (CLI) | payer OTHER ==
--- NOTE | 2018-10-12 09:15 | PAINCON ---
[address] [address] PAIN MANAGEMENT CONSULTATION Name: NATAN OAKES Room: [facility]#: [id number] Admission: 10/07/18 Attend Phys: Artem Oakes MD Discharge: Date of : 64 Report #: [id number] THIS REPORT FOR: //name// CC: Oscar Oakes DATE OF SERVICE: 10/11/2018 CHIEF COMPLAINT: Here for medication renewal. FOLLOWUP HISTORY: The patient is a 58-year-old gentleman who has been followed in the pain clinic because of chronic pain. Has low back pain and discomfort. He has undergone epidural steroid injections because of lumbar radicular pain. He was found overall that things are going reasonably well. Pain involves his right side, in the L5-S1 dermatomal distribution. He works from home. Did change his work environment to one that has been most ergonomic As a result of that change, he has noted some improvement in his pain. He has returned today for renewal of his pain medications. Overall, he feels that things are about 70% improved. Feels that things are "not too bad. Rates it as a 5/10 today. ALLERGIES: No known drug allergies. CURRENT MEDICATIONS: Amlodipine 10 mg, Lipitor 20 mg, betamethasone 0.05% topical, Flexeril 10 mg at bedtime, hydrochlorothiazide 25 mg, lisinopril 20 mg, total of 40 daily; losartan 100 mg, Mobic 15 mg, metformin 500 mg b.i.d., omeprazole 20 mg 1-2 tablets, propranolol 60 mg, Desyrel 50 mg at bedtime. PAIN CLINIC ASSESSMENT/PQRS: 1. The patient does have some arthritic changes in his knees. He is not being treated for rheumatoid arthritis. 2. Height 5 feet 7 inches, weight 276 pounds, BMI is 44. 3. Vital Signs: Blood pressure 146/90, heart rate 98, respiratory rate 16, room air saturation 95%. 4. Temperature 98.2. 5. Pain intensity 12/31. 6. The patient has not fallen in the last 3 months. 7. Blood thinner. The patient is not on a blood thinning medication. 8. Hypertension. The patient is being treated for hypertension. 9. Opioids greater than 6 weeks. The patient is receiving tramadol through the pain clinic. 10. Risk assessment tool, low for opioid use. 11. Functional assessment tool. 12. Recreational drug use. The patient denies use of recreational drugs. 13. Tobacco: The patient denies use of tobacco. PHYSICAL EXAMINATION: [address] [place] [address] PAIN MANAGEMENT CONSULTATION Name: NATAN OAKES Room: [facility]#: [id number] Admission: 10/07/18 Attend Phys: Artem Oakes MD Discharge: Date of : 64 Report #: [id number] GENERAL: The patient is a well-developed, well-nourished black male, slightly obese. He is alert and oriented x 3. Affect is appropriate. Speech is fluent. HEENT: Normocephalic, atraumatic. Extraocular eye muscles intact. Sclerae nonicteric. Mucous membranes are moist. NECK: Without adenopathy. The patient wears glasses. HEART: Regular rate. S1, S2. ABDOMEN: Protuberant without organomegaly. Bowel sounds present. EXTREMITIES: Upper extremity muscle strength judged to be 5/5 for the major muscle groups. MUSCULOSKELETAL: Without significant scoliosis, kyphosis or lordosis. The patient does have some pain and discomfort in lower portion of his back with pain that involves the L4-L5 dermatomal distribution as well as the L4-L5 dermatomal distribution, left and right are involved. IMPRESSION: 1. History of lumbar radiculopathy. 2. History of elevated blood sugars after epidural steroid injections. 3. Diabetes. 4. Gastroesophageal reflux. 5. History of atrial fibrillation. 6. Benign prostatic hypertrophy. 7. Degenerative disk disease of lumbar spine. 8. Low back pain. 9. Chronic pain. 10. Hypercholesterolemia. 11. Hepatitis C. 12. Chronic insomnia. 13. Hypertension. RECOMMENDATIONS: We discussed treatment options with the patient. At this juncture, we will continue with his current medication regimen. He feels that things are going reasonably well. He has had about 70% improvement in his pain with his current medical treatment. A script for his medications of tramadol, Meloxicam, tizanidine and amitriptyline have all been renewed. The patient will call us if he has any concerns. We would like to thank you for letting us participate in his care. We hope he continues to improve. <ELECTRONICALLY SIGNED> By: Artem Oakes MD 10/12/18 [id number]. Mati Oakes MD /nt
== END ==
LOC: M.PC 05:28
DX: M51.36 Other intervertebral disc degeneration, lumbar region (principal); G89.29 Other chronic pain; E11.9 Type 2 diabetes mellitus without complications; K21.9 Gastro-esophageal reflux disease without esophagitis; I48.91 Unspecified atrial fibrillation; E78.00 Pure hypercholesterolemia, unspecified; B19.20 Unspecified viral hepatitis C without hepatic coma; I10 Essential (primary) hypertension

== ENCOUNTER → 2018-11-04 | Outpatient (CLI) | payer OTHER ==
[~2018-11-04] MED LIST changes: +MEDROLDOSEPACK PO
--- NOTE | ~2018-11-04 | PAINCON ---
[address] [address] PAIN MANAGEMENT CONSULTATION Name: NATAN OAKES Room: [facility].#: [id number] Admission: 11/04/18 Attend Phys: Artem Oakes MD Discharge: Date of : 64 Report #: [id number] THIS REPORT FOR: //name// CC: Oscar Oakes DATE OF SERVICE: 11/04/2018 CHIEF COMPLAINT: "Here for medication renewal and I am having pain in my low back." FOLLOWUP HISTORY: The patient is a 58-year-old gentleman who has been followed in the pain clinic. As you recall, he has pain in the low back area. He has undergone epidural steroid injections and gleaned benefits from them. He notes that the weather has changed. He has been cold and increasingly problematic. He has noted some worsening of his pain as a result of this. He feels like he would like to work out more and "get healthy." He rates his pain as a 10/10. He feels that the gabapentin, tramadol, meloxicam, tizanidine and amitriptyline have been helpful. He continues to desire an improvement in his pain condition. Denies any bowel or bladder dysfunction. ALLERGIES: No known drug allergies. CURRENT MEDICATIONS: Amlodipine 10 mg, Lipitor 20 mg, betamethasone 0.05% topical, Flexeril 10 mg at bedtime, hydrochlorothiazide 25 mg; lisinopril 20 mg, total of 40 mg daily; losartan 100 mg, Mobic 15 mg, metformin 500 mg b.i.d., omeprazole 20 mg 1-2 tablets, propranolol 60 mg, and Desyrel 50 mg at bedtime. PAIN CLINIC ASSESSMENT/PQRS: 1. The patient does have some arthritic changes in his knees. He has not been treated for rheumatoid arthritis. 2. Height 5 feet 7 inches, weight 275 pounds, BMI is 43.2. 3. Vital signs: Blood pressure 156/97, heart rate 88, respiratory rate 16, room air saturation 94%, and temperature 98.8. 4. Pain intensity is 10/10. 5. Fall history: The patient has not fallen in the last 3 months. 6. Blood thinner. The patient is not on a blood thinning medication. 7. Hypertension. The patient is being treated for hypertension. 8. Opioids greater than 6 weeks. The patient receives his medication [facility], the pain clinic. 9. Risk assessment tool, low for opioid use. 10. Functional assessment tool. 11. Recreational drug use. The patient denies use of recreational drugs. 12. Tobacco: The [place] [address] PAIN MANAGEMENT CONSULTATION Name: NATAN OAKES Room: [facility]#: [id number] Admission: 11/04/18 Attend Phys: Artem Oakes MD Discharge: Date of : 64 Report #: [id number] PHYSICAL EXAMINATION: GENERAL: The patient is a well-developed, well-nourished, somewhat obese black male, appears his stated age. He is alert and oriented x 3. His affect is appropriate. Speech is fluent. HEENT: Normocephalic, atraumatic. Extraocular eye muscles intact. Sclerae are nonicteric. Mucous membranes are moist. The patient wears glasses. NECK: Without adenopathy. HEART: Regular rate. S1, S2. ABDOMEN: Protuberant. Bowel sounds present. EXTREMITIES: Upper extremity muscle strength is judged to be 5/5 for the major muscle groups in the upper extremity. Lower extremity muscle strength is judged to be 5-/5 with involvement of the L4-L5 dermatomal distribution involving his left as well as the right low back area and leg. IMPRESSION: 1. History of lumbar radiculopathy. 2. History of elevated blood sugars after epidural steroid injections. 3. Diabetes. 4. Gastroesophageal reflux. 5. History of atrial fibrillation. 6. Benign prostatic hypertrophy. 7. Degenerative disk disease of the lumbar spine. 8. Low back pain. 9. Chronic pain. 10. Hypercholesterolemia. 11. Hepatitis C. 12. Chronic insomnia. 13. Hypertension. RECOMMENDATIONS: We discussed treatment options with the patient. At this juncture, we will continue with his medications. A script for meloxicam 15 mg 1 daily, tizanidine 2 mg 1 p.o. b.i.d., Elavil 25 mg 2 tablets at bedtime, Neurontin 400 mg 1 p.o. t.i.d. and tramadol 50 mg q.i.d. have been written. The patient has also been given a Medrol Dosepak to take in the interim. Hopefully, this will help decrease the pain and discomfort he is experiencing. He does complain of increased right knee pain. He has had some swelling in his right knee. It was particularly problematic about a week ago. Things are improving. We would like to thank you for letting us participate in his care. We hope he continues to improve. By: [id number] [id number]. Mati Oakes MD /nt
== END ==
LOC: M.PC 10:28
DX: M51.16 Intervertebral disc disorders with radiculopathy, lumbar region (principal); G89.29 Other chronic pain; E11.9 Type 2 diabetes mellitus without complications; K21.9 Gastro-esophageal reflux disease without esophagitis; I48.91 Unspecified atrial fibrillation; N40.0 Benign prostatic hyperplasia without lower urinary tract symptoms; E78.00 Pure hypercholesterolemia, unspecified; I10 Essential (primary) hypertension; G47.00 Insomnia, unspecified; B19.20 Unspecified viral hepatitis C without hepatic coma; Z79.899 Other long term (current) drug therapy